=== PATIENT | male | born 1985 | race Caucasian/White ===

== ENCOUNTER → 2022-10-07 11:50 | Outpatient (BNVA) | payer BC, SELFPAY | PROVIDERS: Family Provider Nurse Practitioner Family; PCP Nurse Practitioner Family; Visit Provider Psychiatry & Neurology Psychiatry | DX: F41.1 Generalized anxiety disorder (principal) | CPT/HCPCS: 80061; 83036 ==

== ENCOUNTER 2022-11-18 12:57 | Emergency (ER) | payer BC, MEDICAID, SELFPAY ==
[2022-10-11 11:18] VITALS: BP 129/73; BMI 25.6
[2022-11-18 13:02] VITALS: BMI 26.6
[2022-11-18 13:04] VITALS: BP 148/97; PULSE 84; RESP 17; TEMP 37.1; O2SAT 98
--- NOTE | 2022-11-18 13:21 | XR_ITS ---
WS: [id number] Exam: XR lumbar spine 2-3V* [id number] Date/Time of Exam: 11/18/2022 1:21 PM Reason For Exam: chronic low back pain No fracture or dislocation noted. There appears to be sacralization of L5. Disc spaces are preserved. Posterior elements are intact. There is straightening. Incidentally noted is large amount retained s tool in the sigmoid, left colon and transverse colon. XR/XR lumbar spine 2-3V* [id number] IMPRESSION: 1. Straightening of the L-spine. No fracture or malalignment. 2. Sacralization of L5. 3. Constipation noted as an incidental finding.
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
[2022-11-18 13:45] VITALS: RESP 16; O2SAT 99
[2022-11-18] MEDS: morphine 4 mg/mL SDV 1 mL IM (13:45)
[2022-11-18] MEDS: diazePAM 5 mg Tablet PO (13:45)
[2022-11-18] MEDS: dexamethasone 10 mg/mL INJ IM (13:45)
--- NOTE | 2022-11-18 14:49 | DCPLANNER ---
Addendum entered by Marita Rodriguez 12/10/22 10:36: This appointment was rescheduled Addendum entered by Marita Rodriguez 11/24/22 15:16: Patient has a follow up appointment scheduled for November at 2:00 with Rupa Segovia at ortho. Addendum entered by Marita Rodriguez 11/19/22 13:11: pig farm manager received the following message from the ortho clinic regarding follow up appointment: attempt made to contact patient - left and will mail letter to call our clinic to schedule w/ dr ragland or rupa iyer Original Note: pig farm manager had message to schedule a follow up appointment for patient with ortho. pig farm manager sent patients information to the front office staff at ortho. Patients information will be printed and reviewed. Clinic will call patient with appointment information.
== END 2022-11-18 14:02 | disposition home or self-care (01) ==
PROVIDERS: Emergency Provider Physician Assistant; PCP Nurse Practitioner Family
DX: G89.29 Other chronic pain (principal); M54.50 Low back pain, unspecified; K59.03 Drug induced constipation; F17.220 Nicotine dependence, chewing tobacco, uncomplicated
CPT/HCPCS: 72100; 96372; 99284; J1100; J2270

== ENCOUNTER 2022-12-21 12:08 | Outpatient (CLI) | payer OTHER, BC, MEDICAID, SELFPAY ==
[2022-10-11 11:18] VITALS: BP 129/73; BMI 25.6
[2022-12-21 13:17] LABS: Alanine Aminotransferase 69 U/L (0-41); Albumin Level 4.6 g/dL (3.5-5.2); Alkaline Phosphatase 75 U/L (40-130); Aspartate Amino Transferase 36 U/L (0-40); Blood Urea Nitrogen 7 mg/dL (6-20); Carbon Dioxide 27 mmol/L (22-29); Chloride 106 mmol/L (98-107); Globulin 2.7 g/dL (1.3-4.6); Glomerular Filtration Rate 95.5 mL/min (90-130); Glucose 86 mg/dL (65-115); Osmolality Calculated 289 mOsm/kg (285-295); Sodium 141 mmol/L (136-145); Total Bilirubin 0.2 mg/dL (0.15-1.2); Total Protein 7.3 g/dL (6.6-8.7)
[2022-12-21 13:46] LABS: Hepatitis A Antibody IgM Non-Reactive (Nonreactive); Hepatitis B Core AB, Total Non-Reactive (Nonreactive); Hepatitis B Surface AB 6.7 (11.5-1000); Hepatitis B Surface Antigen Non-Reactive (Nonreactive)
[2022-12-21 14:22] LABS: Hepatitis C Virus Antibody Reactive (Nonreactive)
[2022-12-22 20:04] LABS: HEP C RNA Viral Load Quant 5.95 Log IU/mL (NOT DETECTED); HEP C RNA Viral Load Quant 894000 IU/mL (NOT DETECTED)
== END 2022-12-21 12:09 | disposition home or self-care (01) ==
PROVIDERS: PCP Family Medicine; Visit Provider Psychiatry & Neurology Psychiatry
DX: F15.21 Other stimulant dependence, in remission (principal); F33.1 Major depressive disorder, recurrent, moderate; F41.1 Generalized anxiety disorder; M54.41 Lumbago with sciatica, right side; M54.42 Lumbago with sciatica, left side
CPT/HCPCS: 72110; 80053; 86705; 86706; 86709; 86803; 87340; 87522